=== PATIENT | male | born 1950 | race Caucasian/White ===

== ENCOUNTER 2017-05-11 19:42 | Inpatient (IN) | payer MEDICARE ==
--- NOTE | ~2017-05-11 | CR63 ---
[facility] A Service of [facility] RADIOLOGY TEXT RESULTS PATIENT: VELIA BUSBY LOCATION: [facility] [address] : [birth year] UNIT #: [id number] AGE: [address]: Roc Mcelroy MD SEX: M ORDER DR: [id number] [facility] [address] [place], [place] [address] [id number] MR#: [id number] Acc #: [id number] NAME: VELIA BUSBY : 1950 SEX: M STUDY DATE/TIME: 05/12/2017 7:33 UNIT: [facility] ROOM: [facility] STUDY DESCRIPTION: CR Chest 2 View Attending Physician: Roc Mcelroy M.D. Ordering Physician: Yue Delcid M.D. Primary Care Physician: Francois Davey M.D. MEDICAL IMAGING REPORT This report is preliminary unless electronic signature is present EXAM Chest x-ray HISTORY Hyponatremia, accelerated hypertension, shortness of breath beginning yesterday. TECHNIQUE Two views of the chest were obtained and compared to 09/13/2014. FINDINGS Heart size is normal. The aorta is tortuous and ectatic but unchanged. Both lungs are clear with normal vascular markings. No pleural fluid is seen. No new infiltrates are seen since the previous exam. IMPRESSION Tortuous aorta. No active disease. Dictated by... Michael Carranza M.D. THIS IS AN ELECTRONICALLY VERIFIED REPORT Michael Carranza M.D. at 05/12/2017 9:34 AM SHILPIF/bandar TD: 05/12/2017 07:53 JOB #: [id number] MEDICAL IMAGING REPORT Page 1 of 1 COPY
--- NOTE | ~2017-05-11 | EKG ---
PATIENT: VELIA BUSBY UNIT #: [id number] Ventricular Rate: 64 BPM Atrial Rate: 64 BPM P-R Interval: 188 ms QRS Duration: 86 ms Q-T Interval: 458 ms QTC Calculation(Bezet): 472 ms P [place]: 68 degrees Calculated R [place]: 37 degrees Calculated T [place]: 59 degrees Diagnosis Line: Normal sinus rhythm Diagnosis Line: Normal ECG Diagnosis Line: When compared with ECG of 13-SEP-2014 18:15, Diagnosis Line: No significant change was found Diagnosis Line: Confirmed by JUNIOR YOUNG MD ([id number]) on Diagnosis Line: 05/13/2017 10:32:30 AM INTERPRETING MD: HECTOR ARROYO
--- NOTE | ~2017-05-11 | DS ---
Unit #: [id number] #: [id number] Patient: VELIA BUSBY [id number] [address] [place], [place] [address] [id number] I MR#: [id number] NAME: VELIA BUSBY. ROOM: 469 Age: 66 Sex: M Admission Date: 05/12/2017 : 1950 Discharge Date: 05/13/2017 Attending Physician: Roc Mcelroy M.D. Primary Care Physician: Francois Davey M.D. DISCHARGE SUMMARY PRIMARY DIAGNOSIS Severe hyponatremia related to Trileptal, ongoing alcohol use and Hydrochlorothiazide. SECONDARY DIAGNOSES 1. Hypertension, recently started on Hydrochlorothiazide. 2. Metabolic acidosis, resolved at discharge. 3. Alcohol abuse. 4. Hypokalemia, resolved at discharge. HOSPITAL COURSE The patient came in with a mild metabolic acidosis with a bicarb of 19 to 20, mild hypokalemia but severe hyponatremia with a sodium of 123. This quickly resolved with IV fluids and high dose oral sodium bicarbonate and decreasing of his Trileptal to 150 mg b.i.d. and keeping away from alcohol and Hydrochlorothiazide. Apparently the patient had recently been started on a blood pressure medication, including bisoprolol 10 mg in combination pill with Hydrochlorothiazide 25 mg. I have given a new script for the bisoprolol without the Hydrochlorothiazide, and I have told him to stop taking the combination pill and to cut his Trileptal tablets in half, as they are scored in the middle. I have advised him to follow up with his psychiatrist, Dr. Lemuel Oglesby, in one week to discuss possibly taking him off the Trileptal entirely. I have also counseled the patient to stop drinking the 3-4 beers that he admits to drinking each day. DISCHARGE DISPOSITION To home. DISCHARGE STATUS Stable. DISCHARGE ACTIVITY Ad virgilio. DISCHARGE DIET Low-sodium diet due to his history of high blood pressure. FOLLOWUP 1. With Dr. Lemuel Oglesby, his psychiatrist, in 1 week. 2. Follow up with his PCP in 2-6 weeks. . DISCHARGE MEDICATIONS 1. Flomax 0.4 mg p.o. daily. Unit #: [id number] #: [id number] Patient: VELIA BUSBY 2. Divalproex sodium 500 mg p.o. b.i.d. 3. Oxcarbazepine 300 mg tablet, take 1/2 tablet b.i.d. 4. Sertraline 100 mg 1-2 tablets p.o. daily, which is his home dose. 5. Metformin 1,000 mg p.o. b.i.d. 6. Seroquel 400 mg p.o. b.i.d. 7. Lorazepam 1 mg p.o. t.i.d., which is his home dose. 8. Lopressor 50 mg p.o. b.i.d. 9. VESIcare 10 mg p.o. daily. 10. Bisoprolol 10 mg p.o. daily. 11. Allopurinol 300 mg p.o. daily. 12. Aspirin 81 mg p.o. daily. Dictated by... Jhonny Soliz/henri TD: 05/14/2017 15:52 JOB #: [id number] DISCHARGE SUMMARY Page 1 of 1 X Roc Mcelroy MD X DISCHARGE SUMMARY
--- NOTE | ~2017-05-11 | HP ---
Unit #: [id number] #: [id number] Patient: VELIA BUSBY [id number] [address] [place], [place] [address] [id number] MR#: [id number] NAME: VELIA BUSBY. ROOM: 469 Age: 66 Sex: M Admission Date: 05/11/2017 : 1950 Attending Physician: Roc Mcelroy M.D. Primary Care Physician: Francois Davey M.D. HISTORY AND PHYSICAL CHIEF COMPLAINT Accelerated hypertension and hyponatremia. HISTORY This pleasant 66-year-old male, with schizoaffective disorder, hypertension, coronary artery disease, adult-onset diabetes mellitus and seizure disorder, is admitted for hyponatremia and accelerated hypertension. The patient recently started Ziac/HCTZ 10/6.25 mg daily. Checked his blood pressure recently, and his machine read high. States that he was drinking about 3 beers on a daily basis until 2 days ago, and he stopped drinking alcohol. He was brought to this emergency department tonight with elevated blood pressure, 162/101. He was given 0.1 mg of clonidine. However, his sodium is 123. Does have a history of hyponatremia thought to be related to medication-induced SIADH in the past. However, his last sodium was 137 a year ago. PAST MEDICAL HISTORY 1. Hypertension. 2. Hyperlipidemia. 3. Seizure disorder; last seizure was many years ago. 4. Coronary artery disease status post PCI and stents x4. 5. GERD and gastritis. 6. Schizoaffective disorder 7. Multiple joint surgeries, including knee, ankle, right leg for fractures. 8. Appendectomy. ALLERGIES Sulfa. HOME MEDICATIONS 1. Ziac/HCTZ 10 mg daily. 2. Lipitor 40 mg q.h.s. 3. Seroquel 400 mg b.i.d. 4. Depakote 500 mg b.i.d. 5. Metformin 1,000 mg b.i.d. 6. Zoloft 100 mg 1-2 tablets daily. 7. Oxcarbazepine 300 mg b.i.d. 8. Lopressor 50 mg b.i.d. 9. Aspirin 81 mg daily. 10. VESIcare 10 mg daily. 11. Flomax 0.4 mg daily. Unit #: [id number] #: [id number] Patient: VELIA BUSBY 12. Allopurinol 300 mg daily. 13. Ativan 1 mg t.i.d. FAMILY HISTORY Coronary artery disease. SOCIAL HISTORY The patient lives with his son. He smokes 3/4 pack per day of tobacco, down from 3 to 4 packs per day. Was drinking about 3 beers on a daily basis until 2 days ago. Denies any symptoms of withdrawal. REVIEW OF SYSTEMS Review of systems is notable for hypertension, hyperlipidemia, adult-onset diabetes mellitus, seizures, hyponatremia, coronary artery disease, GERD, gastritis, schizoaffective disorder, above-mentioned surgeries and tobacco abuse. All other systems were reviewed and otherwise negative. PHYSICAL EXAMINATION GENERAL: Pleasant, somewhat depressed appearing, 66-year-old male who currently is in no acute distress. VITAL SIGNS: Temperature 97.5, pulse 77, respirations 16, blood pressure 162/101, which has improved to a blood pressure of 160/91. HEENT: Eyes-PERRLA. Extraocular muscles are intact. Pharynx is benign. NECK: Supple without adenopathy or thyromegaly. CHEST: Clear. CARDIAC: Normal S1, S2, without S3, S4 or murmur. ABDOMEN: Bowel sounds are present. No hepatosplenomegaly, tenderness or masses. EXTREMITIES: Without cyanosis, clubbing or edema. Pedal pulses are diminished. NEUROLOGIC: The patient is awake, alert, oriented. Cranial nerves are intact. Equal strength throughout. DIAGNOSTIC STUDIES ADMISSION LABS: Hematocrit is 37.5, normal white count, platelet count. SMA-12 - Sodium 123, potassium 3.4, chloride 89, CO2 19, protein is 8.6. Cardiac markers are negative. CARDIOVASCULAR: EKG - Normal sinus rhythm, rate 64, normal appearing. ASSESSMENT 1. Accelerated hypertension. Patient was recently started on Ziac/HCTZ. 2. Hyponatremia, likely related to HCTZ, although the patient is on an SSRI and oxcarbazepine. 3. Coronary artery disease status post PCI and stent. 4. Tobacco abuse. 5. Adult-onset diabetes mellitus. 6. Seizure disorder. 7. Schizoaffective disorder. 8. Excessive beer consumption but none over the past 2 days. PLANS 1. Discontinue Ziac. 2. Start Norvasc. 3. Obtain TSH, urine sodium and chest x-ray. 4. A little normal saline but otherwise will hold IV fluids and reassess the patient with labs in the morning. Unit #: [id number] #: [id number] Patient: VELIA BUSBY Dictated by Yue Delcid M.D. AML/db TD: 05/12/2017 07:36 JOB #: [id number] HISTORY AND PHYSICAL Page 1 of 1 X Yue Delcid MD X HISTORY AND PHYSICAL
[~2017-05-11 19:42] MED LIST: ASPIRIN PO; B/P PILL; BAYER CHEWABLE81 MG; BIPOLAR MED; BUSPAR PO; CHOLESTEROL PILL; CLONIDINE PO; DEPAKOTE; DOXEPIN PO; DOXYCYCLINE150 MG PO; DULERA 100 MCG/13 GM; EXFORGE; FANAPT6 MG PO; GLUCOPHAGE500 M1; KLONOPIN PO; LEXAPRO; LIPITOR40 MG; LISINOPRIL PO; LOPRESSOR PO; LOTREL PO; NEURONTIN PO; PRILOSEC PO; PRILOSEC20 MG; PROPRANOLOL; PROPRANOLOL HCL10 M1; PROTONIX PO; SEIZURE MED; SEROQUEL; SEROQUEL PO; TEGRETOL XR PO; TEKTURNA; ZETIA PO; ZOLOFT PO; ZYPREXA PO
[2017-05-11 21:03] LABS: BASOPHIL# 0.1 X10e3 (0-0.3); EOSINOPHIL% 0.3 % (0.0-7.0); HEMATOCRIT 37.5 % (38.0-50.0); HEMOGLOBIN 12.7 gm/dL (13.0-16.0); LYMPHOCYTE# 2.6 X10e3 (1.0-3.5); LYMPHOCYTE% 33.5 % (17.0-45.0); MEAN CELL VOLUME 90.9 FL (83-96); MEAN CORPUSCULAR HEMOGLOBIN 30.7 PG (28-34); MEAN CORPUSCULAR HGB CONC 33.8 g/dL (30-36); MEAN PLATELET VOLUME 7.6 FL (6.5-11.5); MONOCYTE# 0.8 X10e3 (0-1.0); NEUTROPHIL# 4.1 X10e3 (1.5-7.1); NEUTROPHIL% 54.2 % (40-75); PLATELET COUNT 324 X10e3 (140-420); RED BLOOD COUNT 4.13 X10e (3.90-5.60); RED CELL DISTRIBUTION WIDTH 14.5 % (11.0-15.5); WHITE BLOOD COUNT 7.6 X10e3 (4.0-10.5)
[2017-05-11 21:04] LABS: DIFF IND NO
[2017-05-11 21:24] LABS: ALBUMIN SERUM 4.5 g/dL (3.5-5.0); BILIRUBIN, DIRECT 0.1 mg/dL (0.0-0.2); BILIRUBIN,INDIRECT 0.9 mg/dL (0.0-0.9); BUN/CREATININE RATIO 12.22; CALCIUM SERUM 9.9 mg/dL (8.4-10.2); CREATININE SERUM 0.9 mg/dL (0.6-1.4); GLOM FILT RATE Estimated 88.7 mL/min (>60); POTASSIUM 3.4 mmol/L (3.5-5.1); PROTEIN TOTAL SERUM 8.6 g/dL (6.0-8.3)
[2017-05-11 21:59] LABS: POC - CKMB 4.2 ng/mL (0.0-7.9); POC - TROPONIN <0.05 ng/mL (<=0.05)
[2017-05-11] MEDS ORDERED: LIPITOR40 MG PO (22:36)
[2017-05-11] MEDS ORDERED: ZIAC 2.5-6.251 EACH PO (22:36)
[2017-05-11] MEDS ORDERED: SEROQUEL400 MG PO (22:37)
[2017-05-11] MEDS ORDERED: DIVALPROEX SOD500 M2 PO (22:38)
[2017-05-11] MEDS ORDERED: METFORMIN HCL1000 M1 PO (22:39)
[2017-05-11] MEDS ORDERED: OXCARBAZEPINE300 MG PO (22:40)
[2017-05-11] MEDS ORDERED: SERTRALINE HCL100 M1 PO (22:40)
[2017-05-11] MEDS ORDERED: LOPRESSOR PO (22:41)
[2017-05-11] MEDS ORDERED: ASPIRIN81 M2 PO (22:41)
[2017-05-11] MEDS ORDERED: VESICARE PO (22:42)
[2017-05-11] MEDS ORDERED: FLOMAX0.4 M1 PO (22:42)
[2017-05-11] MEDS ORDERED: ALLOPURINOL300 MG PO (22:43)
[2017-05-11] MEDS ORDERED: LORAZEPAM1 MG PO (22:43)
[2017-05-12 02:57] LABS: BASOPHIL% 0.5 % (0-2.5); EOSINOPHIL# 0.1 X10e3 (0-0.7); EOSINOPHIL% 1.1 % (0.0-7.0); HEMATOCRIT 35.2 % (38.0-50.0); HEMOGLOBIN 11.9 gm/dL (13.0-16.0); LYMPHOCYTE# 2.7 X10e3 (1.0-3.5); LYMPHOCYTE% 36.9 % (17.0-45.0); MEAN CELL VOLUME 91.4 FL (83-96); MEAN CORPUSCULAR HEMOGLOBIN 30.8 PG (28-34); MEAN CORPUSCULAR HGB CONC 33.7 g/dL (30-36); MEAN PLATELET VOLUME 7.8 FL (6.5-11.5); MONOCYTE# 0.9 X10e3 (0-1.0); MONOCYTE% 11.8 % (3.0-12.0); NEUTROPHIL# 3.7 X10e3 (1.5-7.1); NEUTROPHIL% 49.7 % (40-75); PLATELET COUNT 291 X10e3 (140-420); RED BLOOD COUNT 3.86 X10e (3.90-5.60); RED CELL DISTRIBUTION WIDTH 14.7 % (11.0-15.5); WHITE BLOOD COUNT 7.4 X10e3 (4.0-10.5)
[2017-05-12 02:58] LABS: DIFF IND NO
[2017-05-12 03:21] LABS: BUN/CREATININE RATIO 18.33; CREATININE SERUM 0.6 mg/dL (0.6-1.4); GLOM FILT RATE Estimated 104.8 mL/min (>60)
[2017-05-12 06:17] LABS: URINE SOURCE CLEAN CATCH
[2017-05-12 06:24] LABS: URINE APPEARANCE CLEAR; URINE BILIRUBIN NEG (NEG); URINE BLOOD NEG (NEG); URINE COLOR YELLOW; URINE GLUCOSE NEG (NEG); URINE KETONE 1+ (NEG); URINE LEUKOCYTE ESTERASE NEG (NEG); URINE NITRATE NEG (NEG); URINE PROTEIN NEG (NEG); URINE SPECIFIC GRAVITY 1.017 (1.003-1.035)
[2017-05-12 06:27] LABS: CULTURE INDICATED? NO
[2017-05-13 03:38] LABS: BUN/CREATININE RATIO 11.25; CALCIUM SERUM 9.5 mg/dL (8.4-10.2); CREATININE SERUM 0.8 mg/dL (0.6-1.4); GLOM FILT RATE Estimated 93.1 mL/min (>60); MAGNESIUM 1.8 mg/dL (1.6-3.0); POTASSIUM 5.4 mmol/L (3.5-5.1)
[2017-05-13] MEDS ORDERED: BISOPROLOL FUMA10 MG PO (12:19)
== END 2017-05-13 13:06 | disposition home or self-care (01) | DRG 641 ==
LOC: CED 19:42 → CEDOF 23:00 → C4C 23:00 → CED 23:00 → CEDOF 23:15 → C4C 05-12 00:34 → CEDOF 05-12 00:34 → C4C 05-12 00:34 → CED 05-12 09:08 → C4C 05-12 09:08 → CEDOF 05-12 09:08 → C4C 05-12 09:08
PROVIDERS: Emergency Medicine; Internal Medicine
DX: E87.1 Hypo-osmolality and hyponatremia (principal); E87.2 Acidosis; F10.10 Alcohol abuse, uncomplicated; E87.6 Hypokalemia; I16.0 Hypertensive urgency; T42.1X5A Adverse effect of iminostilbenes, initial encounter; Y92.9 Unspecified place or not applicable; I25.10 Atherosclerotic heart disease of native coronary artery without angina pectoris; Z95.5 Presence of coronary angioplasty implant and graft; G40.909 Epilepsy, unspecified, not intractable, without status epilepticus; E78.5 Hyperlipidemia, unspecified; K21.9 Gastro-esophageal reflux disease without esophagitis; F17.200 Nicotine dependence, unspecified, uncomplicated; E11.9 Type 2 diabetes mellitus without complications; F25.9 Schizoaffective disorder, unspecified; Z88.2 Allergy status to sulfonamides; Z82.49 Family history of ischemic heart disease and other diseases of the circulatory system
CPT/HCPCS: 36415; 71020; 80048; 80061; 80076; 81003; 82553; 82947; 83735; 84300; 84443; 84484; 85025; 93005; 97162; 97167; 99285; G8978-GP; G8979-GP; G8980-GP; G8987-GO; G8988-GO; G8989-GO; J1815; J3475; J3480

== ENCOUNTER → 2017-05-20 | Outpatient (CLI) | payer MEDICARE ==
[~2017-05-20] MED LIST changes: +ALLOPURINOL300 MG PO; +ASPIRIN81 M2 PO; +BISOPROLOL FUMA10 MG PO; +DIVALPROEX SOD500 M2 PO; +FLOMAX0.4 M1 PO; +LIPITOR40 MG PO; +LORAZEPAM1 MG PO; +METFORMIN HCL1000 M1 PO; +OXCARBAZEPINE300 MG PO; +SEROQUEL400 MG PO; +SERTRALINE HCL100 M1 PO; +VESICARE PO; +ZIAC 2.5-6.251 EACH PO
[2017-05-20 15:03] LABS: ALBUMIN SERUM 4.5 g/dL (3.5-5.0); BILIRUBIN,TOTAL 0.1 mg/dL (0.2-2.0); CALCIUM SERUM 9.9 mg/dL (8.4-10.2); GLOM FILT RATE Estimated 78.1 mL/min (>60); POTASSIUM 4.7 mmol/L (3.5-5.1); PROTEIN TOTAL SERUM 8.2 g/dL (6.0-8.3)
== END | disposition home or self-care (01) ==
LOC: CLAB 13:35
PROVIDERS: Psychiatry & Neurology Psychiatry
DX: F31.9 Bipolar disorder, unspecified (principal)
CPT/HCPCS: 36415; 80053

== ENCOUNTER → 2017-07-19 | Outpatient (CLI) | payer MEDICARE ==
[2017-07-19 13:37] LABS: ALBUMIN SERUM 3.8 g/dL (3.5-5.0); BILIRUBIN,TOTAL 0.4 mg/dL (0.2-2.0); BUN/CREATININE RATIO 14.44; CALCIUM SERUM 9.3 mg/dL (8.4-10.2); CREATININE SERUM 0.9 mg/dL (0.6-1.4); GLOM FILT RATE Estimated 88.7 mL/min (>60); POTASSIUM 4.8 mmol/L (3.5-5.1)
== END | disposition home or self-care (01) ==
LOC: CLAB 11:59
PROVIDERS: Psychiatry & Neurology Psychiatry
DX: F31.9 Bipolar disorder, unspecified (principal)
CPT/HCPCS: 36415; 80053